=== PATIENT | male | born 1950 | race Caucasian/White ===

== ENCOUNTER 2021-02-27 11:01 | Inpatient (IN) | payer OTHER ==
[2021-02-27 14:50] LABS: #Eosinphils 0.1 10x3/uL (0.0-0.5); #Monocytes 0.8 10x3/uL (0.0-1.1); #Neutrophils 5.6 10x3/uL (1.5-8.4); %Basophils 0.4 % (0.0-2.0); %Lymphocytes 6.2 % (18.0-47.0); %Neutrophils 79.8 % (40.0-75.0); Hemoglobin 12.3 g/dL (13.5-17.5); Mean Corpuscular HGB CONC 32.6 g/dL (32.0-36.0); Mean Corpuscular Hemoglobin 30.4 pg (27.0-33.0); Mean Corpuscular Volume 93.3 fl (81.2-95.1); Mean Platelet Volume 10.6 fl (7.4-10.4); Platelet Count 127 10x3/uL (150-450); RBC Distribution Width 14.4 % (11.5-14.5); Red Blood Cell (RBC) Count 4.04 10x6/uL (4.32-5.72); White Blood Cell (WBC) Count 7.1 10x3/uL (3.5-10.5)
[2021-02-27] MEDS ORDERED: Cefepime 2 GM VIAL ONE (14:50)
[2021-02-27 14:54] LABS: ALT (SGPT) 19 U/L (8-55); AST (SGOT) 17 U/L (5-34); Albumin 3.9 g/dL (3.4-4.8); Alkaline Phosphatase 61 U/L (40-110); Anion Gap 15 mmol/L (10-20); BUN (Urea Nitrogen) 31 mg/dL (8.4-25.7); Bilirubin, Total 1.8 mg/dL (0.2-1.2); Calc. Creatinine Clearance 0 mL/min (70-130); Calcium 9.9 mg/dL (7.8-10.44); Carbon Dioxide 24 mmol/L (23-31); Chloride 103 mmol/L (98-107); Globulin 3.2 g/dL (2.4-3.5); Glucose 172 mg/dL (83-110); Potassium 4.9 mmol/L (3.5-5.1); Protein, Total 7.1 g/dL (5.8-8.1); Sodium 137 mmol/L (136-145)
[2021-02-27 14:59] LABS: PTT 54.5 sec (22.0-33.0); Prothrombin Time 72.1 sec (9.5-12.1)
[2021-02-27 15:02] LABS: INR-International Normal Ratio 7.1
[2021-02-27 15:52] LABS: SARS-CoV-2 NAA Rapid Test Not Detected (NotDetected)
[2021-02-27 17:25] LABS: Lactic Acid 3.3 mmol/L (0.5-2.2)
[2021-02-28] MEDS ORDERED: Phytonadione 10 MG/ML AMP PO SCH ×2 (04:30→11:00)
[2021-02-28] MEDS ORDERED: Furosemide 40 MG/4 ML VIAL SLOW IVP SCH (04:45)
[2021-02-28] MEDS ORDERED: Furosemide 40 MG/4 ML VIAL ONE (04:58)
[2021-02-28] MEDS ORDERED: Metoprolol Tartrate 50 MG TAB ONE (04:58)
[2021-02-28] MEDS ORDERED: Atorvastatin Calcium 40 MG TAB ONE (04:59)
[2021-02-28] MEDS: Lactated Ringer's 1,000 ML IV SCH ×3 (05:15→19:00)
[2021-02-28 05:25] LABS: Anion Gap 17 mmol/L (10-20); BUN (Urea Nitrogen) 25 mg/dL (8.4-25.7); Calc. Creatinine Clearance 0 mL/min (70-130); Calcium 9.7 mg/dL (7.8-10.44); Carbon Dioxide 17 mmol/L (23-31); Chloride 109 mmol/L (98-107); Glucose 166 mg/dL (83-110); Magnesium 1.9 mg/dL (1.6-2.6); Potassium 4.9 mmol/L (3.5-5.1); Sodium 138 mmol/L (136-145)
[2021-02-28 05:28] LABS: #Eosinphils 0.2 10x3/uL (0.0-0.5); #Monocytes 0.6 10x3/uL (0.0-1.1); #Neutrophils 4.9 10x3/uL (1.5-8.4); %Basophils 0.5 % (0.0-2.0); %Eosinophils 2.5 % (0.0-6.0); %Lymphocytes 8.5 % (18.0-47.0); %Monocytes 10.1 % (0.0-10.0); %Neutrophils 77.9 % (40.0-75.0); Hemoglobin 12.3 g/dL (13.5-17.5); Mean Corpuscular HGB CONC 32.1 g/dL (32.0-36.0); Mean Corpuscular Hemoglobin 30.5 pg (27.0-33.0); Mean Platelet Volume 10.6 fl (7.4-10.4); Platelet Count 135 10x3/uL (150-450); RBC Distribution Width 14.3 % (11.5-14.5); Red Blood Cell (RBC) Count 4.03 10x6/uL (4.32-5.72); White Blood Cell (WBC) Count 6.3 10x3/uL (3.5-10.5)
[2021-02-28 07:33] LABS: Prothrombin Time 67.1 sec (9.5-12.1)
[2021-02-28 07:35] LABS: INR-International Normal Ratio 6.6
[2021-02-28 07:36] LABS: PTT 53.2 sec (22.0-33.0)
[2021-02-28] MEDS: Mometasone/Formoterol 200/5 60 PUFF INH SCH ×2 (08:20→21:05)
[2021-02-28] MEDS: Cefepime 2 GM in Sodium Chloride 0.9% 100 ML IVPB SCH ×2 (09:16→20:55)
[2021-02-28] MEDS: metFORMIN 500 MG TAB PO SCH ×2 (09:17→16:51)
[2021-02-28] MEDS: Spironolactone 25 MG TAB PO SCH ×2 (09:17→16:51)
[2021-02-28] MEDS: Bumetanide 1 MG TAB PO SCH (09:17)
[2021-02-28] MEDS: Metoprolol Tartrate 50 MG TAB PO SCH ×2 (09:17→21:05)
[2021-02-28] MEDS: Amiodarone 200 MG TAB PO SCH (09:17)
[2021-02-28 09:31] VITALS: BMI 33.7
[2021-02-28] MEDS: Vancomycin 1.5 GRAM/300 ML BAG 1.5 GM in Premix Bag 1 BAG IVPB SCH ×2 (11:26→22:30)
[2021-02-28] MEDS ORDERED: Acetaminophen 325 MG TAB PO PRN (12:10)
[2021-02-28] MEDS: HYDROcodone/Acetaminophen 5/325 mg Tablet PO PRN ×2 (12:32→21:27)
[2021-02-28] MEDS: Atorvastatin Calcium 40 MG TAB PO SCH (21:05)
[2021-03-01 05:27] LABS: #Eosinphils 0.2 10x3/uL (0.0-0.5); #Monocytes 0.7 10x3/uL (0.0-1.1); #Neutrophils 4.3 10x3/uL (1.5-8.4); %Basophils 0.5 % (0.0-2.0); %Eosinophils 3.6 % (0.0-6.0); %Lymphocytes 11.7 % (18.0-47.0); %Monocytes 11.9 % (0.0-10.0); %Neutrophils 71.8 % (40.0-75.0); Hemoglobin 11.3 g/dL (13.5-17.5); Mean Corpuscular HGB CONC 32.3 g/dL (32.0-36.0); Mean Corpuscular Hemoglobin 30.4 pg (27.0-33.0); Mean Corpuscular Volume 94.1 fl (81.2-95.1); Mean Platelet Volume 10.4 fl (7.4-10.4); Platelet Count 131 10x3/uL (150-450); Red Blood Cell (RBC) Count 3.72 10x6/uL (4.32-5.72); White Blood Cell (WBC) Count 6.1 10x3/uL (3.5-10.5)
[2021-03-01 05:29] LABS: Anion Gap 13 mmol/L (10-20); BUN (Urea Nitrogen) 27 mg/dL (8.4-25.7); Calc. Creatinine Clearance 86 mL/min (70-130); Calcium 9.5 mg/dL (7.8-10.44); Carbon Dioxide 25 mmol/L (23-31); Chloride 106 mmol/L (98-107); Glucose 134 mg/dL (83-110); Potassium 4.9 mmol/L (3.5-5.1); Sodium 139 mmol/L (136-145)
[2021-03-01 05:34] LABS: INR-International Normal Ratio 2.6; Prothrombin Time 27.4 sec (9.5-12.1)
[2021-03-01] MEDS: Mometasone/Formoterol 200/5 60 PUFF INH SCH ×2 (08:20→20:10)
[2021-03-01 08:46] LABS: Vancomycin, Trough 27.4 ug/mL
[2021-03-01] MEDS: metFORMIN 500 MG TAB PO SCH ×2 (10:05→15:45)
[2021-03-01] MEDS: Saccharomyces boulardii 250 MG CAP PO SCH (10:05)
[2021-03-01] MEDS: HYDROcodone/Acetaminophen 5/325 mg Tablet PO PRN ×2 (10:05→20:24)
[2021-03-01] MEDS: Docusate 100 MG CAP PO PRN (10:05)
[2021-03-01] MEDS: Cefepime 2 GM in Sodium Chloride 0.9% 100 ML IVPB SCH ×2 (10:06→20:22)
[2021-03-01] MEDS: Amiodarone 200 MG TAB PO SCH (10:06)
[2021-03-01] MEDS: Spironolactone 25 MG TAB PO SCH ×2 (10:06→15:45)
[2021-03-01] MEDS: Metoprolol Tartrate 50 MG TAB PO SCH ×2 (10:06→20:23)
[2021-03-01] MEDS: Bumetanide 1 MG TAB PO SCH (10:08)
[2021-03-01] MEDS: Lactated Ringer's 1,000 ML IV SCH ×3 (10:57→20:21)
[2021-03-01] MEDS ORDERED: Warfarin Sodium 7.5 MG TAB PO SCH (17:00)
[2021-03-01] MEDS: Atorvastatin Calcium 40 MG TAB PO SCH (20:23)
[2021-03-01] MEDS: Vancomycin 1.5 GRAM/300 ML BAG 1.5 GM in Premix Bag 1 BAG IVPB SCH (22:13)
[2021-03-02 03:56] LABS: #Eosinphils 0.2 10x3/uL (0.0-0.5); #Monocytes 0.7 10x3/uL (0.0-1.1); %Basophils 0.8 % (0.0-2.0); %Eosinophils 2.8 % (0.0-6.0); %Lymphocytes 8.8 % (18.0-47.0); %Monocytes 13.1 % (0.0-10.0); %Neutrophils 74.3 % (40.0-75.0); Hemoglobin 11.2 g/dL (13.5-17.5); Mean Corpuscular HGB CONC 32.6 g/dL (32.0-36.0); Mean Corpuscular Hemoglobin 30.4 pg (27.0-33.0); Mean Corpuscular Volume 93.5 fl (81.2-95.1); Mean Platelet Volume 10.6 fl (7.4-10.4); Platelet Count 117 10x3/uL (150-450); RBC Distribution Width 13.9 % (11.5-14.5); Red Blood Cell (RBC) Count 3.68 10x6/uL (4.32-5.72); White Blood Cell (WBC) Count 5.3 10x3/uL (3.5-10.5)
[2021-03-02 04:00] LABS: Anion Gap 15 mmol/L (10-20); BUN (Urea Nitrogen) 28 mg/dL (8.4-25.7); Calc. Creatinine Clearance 88 mL/min (70-130); Calcium 9.4 mg/dL (7.8-10.44); Carbon Dioxide 21 mmol/L (23-31); Chloride 105 mmol/L (98-107); Glucose 156 mg/dL (83-110); Potassium 4.3 mmol/L (3.5-5.1); Sodium 137 mmol/L (136-145)
[2021-03-02 04:09] LABS: INR-International Normal Ratio 1.8
[2021-03-02] MEDS: Lactated Ringer's 1,000 ML IV SCH ×4 (06:29→21:13)
[2021-03-02] MEDS: Mometasone/Formoterol 200/5 60 PUFF INH SCH ×2 (08:59→20:08)
[2021-03-02] MEDS: Saccharomyces boulardii 250 MG CAP PO SCH (09:32)
[2021-03-02] MEDS: Spironolactone 25 MG TAB PO SCH ×2 (09:32→17:45)
[2021-03-02] MEDS: metFORMIN 500 MG TAB PO SCH ×2 (09:32→17:45)
[2021-03-02] MEDS: Metoprolol Tartrate 50 MG TAB PO SCH ×2 (09:32→20:40)
[2021-03-02] MEDS: Amiodarone 200 MG TAB PO SCH (09:32)
[2021-03-02] MEDS: Bumetanide 1 MG TAB PO SCH (09:38)
[2021-03-02] MEDS: HYDROcodone/Acetaminophen 5/325 mg Tablet PO PRN ×2 (10:00→20:40)
[2021-03-02] MEDS: Warfarin Sodium 5 MG TAB PO SCH (17:45)
[2021-03-02 20:11] LABS: Vancomycin, Trough 14.9 ug/mL
[2021-03-02] MEDS: Atorvastatin Calcium 40 MG TAB PO SCH (20:40)
[2021-03-02] MEDS: Vancomycin 1.5 GRAM/300 ML BAG 1.5 GM in Premix Bag 1 BAG IVPB SCH (20:41)
[2021-03-03] MEDS: Cefepime 2 GM in Sodium Chloride 0.9% 100 ML IVPB SCH (00:50)
[2021-03-03 05:39] LABS: #Eosinphils 0.2 10x3/uL (0.0-0.5); #Monocytes 0.7 10x3/uL (0.0-1.1); #Neutrophils 3.9 10x3/uL (1.5-8.4); %Basophils 0.4 % (0.0-2.0); %Eosinophils 3.4 % (0.0-6.0); %Lymphocytes 8.5 % (18.0-47.0); %Neutrophils 73.3 % (40.0-75.0); Hemoglobin 11.2 g/dL (13.5-17.5); Mean Corpuscular Hemoglobin 31.1 pg (27.0-33.0); Mean Corpuscular Volume 94.2 fl (81.2-95.1); Mean Platelet Volume 10.4 fl (7.4-10.4); Platelet Count 133 10x3/uL (150-450); White Blood Cell (WBC) Count 5.3 10x3/uL (3.5-10.5)
[2021-03-03 05:46] LABS: INR-International Normal Ratio 2.3; Prothrombin Time 24.6 sec (9.5-12.1)
[2021-03-03 05:48] LABS: Anion Gap 14 mmol/L (10-20); BUN (Urea Nitrogen) 23 mg/dL (8.4-25.7); Calc. Creatinine Clearance 100 mL/min (70-130); Calcium 9.3 mg/dL (7.8-10.44); Carbon Dioxide 21 mmol/L (23-31); Chloride 107 mmol/L (98-107); Glucose 148 mg/dL (83-110); Potassium 4.2 mmol/L (3.5-5.1); Sodium 138 mmol/L (136-145)
[2021-03-03] MEDS: Lactated Ringer's 1,000 ML IV SCH ×2 (05:54→08:51)
[2021-03-03] MEDS: Spironolactone 25 MG TAB PO SCH ×2 (08:52→16:42)
[2021-03-03] MEDS: Metoprolol Tartrate 50 MG TAB PO SCH ×2 (08:52→21:38)
[2021-03-03] MEDS: metFORMIN 500 MG TAB PO SCH ×2 (08:52→16:42)
[2021-03-03] MEDS: Saccharomyces boulardii 250 MG CAP PO SCH (08:52)
[2021-03-03] MEDS: Amiodarone 200 MG TAB PO SCH (08:52)
[2021-03-03] MEDS: HYDROcodone/Acetaminophen 5/325 mg Tablet PO PRN ×2 (08:52→13:16)
[2021-03-03] MEDS: Bumetanide 1 MG TAB PO SCH (08:52)
[2021-03-03] MEDS: Docusate 100 MG CAP PO PRN (08:52)
[2021-03-03] MEDS: Mometasone/Formoterol 200/5 60 PUFF INH SCH ×2 (10:43→19:24)
[2021-03-03] MEDS: Warfarin Sodium 5 MG TAB PO SCH (16:42)
[2021-03-03] MEDS ORDERED: Polyethylene Glycol 3350 17 GM Packet PO SCH ×2 (19:00→21:45)
[2021-03-03] MEDS: Atorvastatin Calcium 40 MG TAB PO SCH (21:37)
[2021-03-03] MEDS: Vancomycin 1.5 GRAM/300 ML BAG 1.5 GM in Premix Bag 1 BAG IVPB SCH (21:43)
[2021-03-04] MEDS ORDERED: Polyethylene Glycol 3350 17 GM Packet PO SCH (04:00)
[2021-03-04] MEDS: Lactated Ringer's 1,000 ML IV SCH ×3 (04:24→13:25)
[2021-03-04 05:28] LABS: Anion Gap 16 mmol/L (10-20); BUN (Urea Nitrogen) 23 mg/dL (8.4-25.7); Calc. Creatinine Clearance 104 mL/min (70-130); Calcium 9.6 mg/dL (7.8-10.44); Carbon Dioxide 21 mmol/L (23-31); Chloride 107 mmol/L (98-107); Glucose 137 mg/dL (83-110); Potassium 4.5 mmol/L (3.5-5.1); Sodium 139 mmol/L (136-145)
[2021-03-04 06:19] LABS: INR-International Normal Ratio 2.7; Prothrombin Time 28.3 sec (9.5-12.1)
[2021-03-04] MEDS: Mometasone/Formoterol 200/5 60 PUFF INH SCH ×2 (08:00→18:50)
[2021-03-04 08:52] LABS: #Eosinphils 0.2 10x3/uL (0.0-0.5); #Monocytes 0.7 10x3/uL (0.0-1.1); #Neutrophils 4.4 10x3/uL (1.5-8.4); %Basophils 0.5 % (0.0-2.0); %Eosinophils 2.6 % (0.0-6.0); %Lymphocytes 9.4 % (18.0-47.0); %Monocytes 12.6 % (0.0-10.0); %Neutrophils 74.6 % (40.0-75.0); Hemoglobin 11.5 g/dL (13.5-17.5); Mean Corpuscular HGB CONC 33.1 g/dL (32.0-36.0); Mean Corpuscular Hemoglobin 30.7 pg (27.0-33.0); Mean Corpuscular Volume 92.8 fl (81.2-95.1); Mean Platelet Volume 10.3 fl (7.4-10.4); Platelet Count 148 10x3/uL (150-450); RBC Distribution Width 14.2 % (11.5-14.5); Red Blood Cell (RBC) Count 3.74 10x6/uL (4.32-5.72); White Blood Cell (WBC) Count 5.9 10x3/uL (3.5-10.5)
[2021-03-04] MEDS: metFORMIN 500 MG TAB PO SCH ×2 (08:55→16:09)
[2021-03-04] MEDS: Spironolactone 25 MG TAB PO SCH ×2 (08:55→16:10)
[2021-03-04] MEDS: Amiodarone 200 MG TAB PO SCH (08:55)
[2021-03-04] MEDS: Metoprolol Tartrate 50 MG TAB PO SCH ×2 (08:55→22:24)
[2021-03-04] MEDS: Bumetanide 1 MG TAB PO SCH (08:55)
[2021-03-04] MEDS: Saccharomyces boulardii 250 MG CAP PO SCH (08:55)
[2021-03-04] MEDS: Warfarin Sodium 5 MG TAB PO SCH (16:10)
[2021-03-04 20:51] LABS: Vancomycin, Trough 14.5 ug/mL
[2021-03-04] MEDS: Atorvastatin Calcium 40 MG TAB PO SCH (22:24)
[2021-03-04] MEDS: Vancomycin 1.5 GRAM/300 ML BAG 1.5 GM in Premix Bag 1 BAG IVPB SCH (22:24)
[2021-03-05] MEDS: Lactated Ringer's 1,000 ML IV SCH ×3 (03:03→09:22)
[2021-03-05 06:19] LABS: Anion Gap 16 mmol/L (10-20); BUN (Urea Nitrogen) 22 mg/dL (8.4-25.7); Calc. Creatinine Clearance 95 mL/min (70-130); Calcium 9.9 mg/dL (7.8-10.44); Carbon Dioxide 21 mmol/L (23-31); Chloride 106 mmol/L (98-107); Glucose 155 mg/dL (83-110); Potassium 4.1 mmol/L (3.5-5.1); Sodium 139 mmol/L (136-145)
[2021-03-05 06:57] LABS: #Eosinphils 0.2 10x3/uL (0.0-0.5); #Monocytes 0.7 10x3/uL (0.0-1.1); #Neutrophils 4.2 10x3/uL (1.5-8.4); %Basophils 0.5 % (0.0-2.0); %Eosinophils 2.7 % (0.0-6.0); %Lymphocytes 6.4 % (18.0-47.0); Hemoglobin 11.3 g/dL (13.5-17.5); Mean Corpuscular HGB CONC 32.9 g/dL (32.0-36.0); Mean Corpuscular Hemoglobin 30.4 pg (27.0-33.0); Mean Corpuscular Volume 92.2 fl (81.2-95.1); Platelet Count 168 10x3/uL (150-450); RBC Distribution Width 14.1 % (11.5-14.5); Red Blood Cell (RBC) Count 3.72 10x6/uL (4.32-5.72); White Blood Cell (WBC) Count 5.5 10x3/uL (3.5-10.5)
[2021-03-05] MEDS: Mometasone/Formoterol 200/5 60 PUFF INH SCH ×2 (07:17→19:18)
[2021-03-05] MEDS: metFORMIN 500 MG TAB PO SCH ×2 (08:02→17:36)
[2021-03-05] MEDS: Spironolactone 25 MG TAB PO SCH ×2 (08:02→17:36)
[2021-03-05] MEDS: Bumetanide 1 MG TAB PO SCH (08:03)
[2021-03-05] MEDS: Metoprolol Tartrate 50 MG TAB PO SCH ×2 (08:03→20:40)
[2021-03-05] MEDS: Saccharomyces boulardii 250 MG CAP PO SCH (08:03)
[2021-03-05] MEDS: Amiodarone 200 MG TAB PO SCH (08:03)
[2021-03-05 08:15] LABS: INR-International Normal Ratio 3.4; Prothrombin Time 36.6 sec (9.5-12.1)
[2021-03-05] MEDS ORDERED: Lactated Ringer's 1,000 ML IV SCH (11:28)
[2021-03-05] MEDS: HYDROcodone/Acetaminophen 5/325 mg Tablet PO PRN (11:46)
[2021-03-05] MEDS ORDERED: Bumetanide 1 MG/4 ML VIAL IVP SCH (16:00)
[2021-03-05] MEDS ORDERED: Warfarin Sodium 2 MG TAB PO SCH (17:00)
[2021-03-05] MEDS ORDERED: Warfarin Sodium 5 MG TAB PO SCH (17:00)
[2021-03-05] MEDS: Vancomycin 1.5 GRAM/300 ML BAG 1.5 GM in Premix Bag 1 BAG IVPB SCH (20:39)
[2021-03-05] MEDS: Atorvastatin Calcium 40 MG TAB PO SCH (20:40)
[2021-03-06 05:45] LABS: Anion Gap 14 mmol/L (10-20); BUN (Urea Nitrogen) 22 mg/dL (8.4-25.7); Calc. Creatinine Clearance 94 mL/min (70-130); Calcium 9.9 mg/dL (7.8-10.44); Carbon Dioxide 22 mmol/L (23-31); Chloride 107 mmol/L (98-107); Glucose 159 mg/dL (83-110); Potassium 4.3 mmol/L (3.5-5.1); Sodium 139 mmol/L (136-145)
[2021-03-06 05:49] LABS: #Eosinphils 0.2 10x3/uL (0.0-0.5); #Monocytes 0.6 10x3/uL (0.0-1.1); #Neutrophils 4.2 10x3/uL (1.5-8.4); %Basophils 0.6 % (0.0-2.0); %Eosinophils 2.8 % (0.0-6.0); %Lymphocytes 7.5 % (18.0-47.0); %Neutrophils 77.7 % (40.0-75.0); Hemoglobin 11.3 g/dL (13.5-17.5); Mean Corpuscular Hemoglobin 30.6 pg (27.0-33.0); Mean Corpuscular Volume 92.7 fl (81.2-95.1); Mean Platelet Volume 9.8 fl (7.4-10.4); Platelet Count 183 10x3/uL (150-450); RBC Distribution Width 14.6 % (11.5-14.5); Red Blood Cell (RBC) Count 3.69 10x6/uL (4.32-5.72); White Blood Cell (WBC) Count 5.5 10x3/uL (3.5-10.5)
[2021-03-06 05:53] LABS: Prothrombin Time 48.1 sec (9.5-12.1)
[2021-03-06 05:57] LABS: INR-International Normal Ratio 4.4
[2021-03-06] MEDS: Mometasone/Formoterol 200/5 60 PUFF INH SCH ×2 (06:58→19:00)
[2021-03-06] MEDS: Spironolactone 25 MG TAB PO SCH ×2 (09:09→16:17)
[2021-03-06] MEDS: metFORMIN 500 MG TAB PO SCH ×2 (09:09→16:17)
[2021-03-06] MEDS: Amiodarone 200 MG TAB PO SCH (09:09)
[2021-03-06] MEDS: Bumetanide 1 MG/4 ML VIAL IVP SCH (09:09)
[2021-03-06] MEDS: Saccharomyces boulardii 250 MG CAP PO SCH (09:10)
[2021-03-06] MEDS: Metoprolol Tartrate 50 MG TAB PO SCH ×2 (09:10→20:05)
[2021-03-06] MEDS: HYDROcodone/Acetaminophen 5/325 mg Tablet PO PRN (13:20)
[2021-03-06] MEDS ORDERED: Bumetanide 1 MG/4 ML VIAL IVP SCH (17:00)
[2021-03-06] MEDS: Atorvastatin Calcium 40 MG TAB PO SCH (20:06)
[2021-03-06] MEDS: Vancomycin 1.5 GRAM/300 ML BAG 1.5 GM in Premix Bag 1 BAG IVPB SCH (20:11)
[2021-03-07 05:42] LABS: Anion Gap 17 mmol/L (10-20); Calc. Creatinine Clearance 83 mL/min (70-130); Calcium 9.7 mg/dL (7.8-10.44); Carbon Dioxide 22 mmol/L (23-31); Chloride 107 mmol/L (98-107); Glucose 179 mg/dL (83-110); Potassium 4.6 mmol/L (3.5-5.1); Sodium 141 mmol/L (136-145)
[2021-03-07 06:20] LABS: BUN (Urea Nitrogen) 24 mg/dL (8.4-25.7)
[2021-03-07 06:36] LABS: #Eosinphils 0.1 10x3/uL (0.0-0.5); #Monocytes 0.6 10x3/uL (0.0-1.1); #Neutrophils 3.9 10x3/uL (1.5-8.4); %Basophils 0.4 % (0.0-2.0); %Eosinophils 1.7 % (0.0-6.0); %Lymphocytes 5.6 % (18.0-47.0); %Monocytes 12.1 % (0.0-10.0); Hemoglobin 11.3 g/dL (13.5-17.5); Mean Corpuscular HGB CONC 33.8 g/dL (32.0-36.0); Mean Corpuscular Hemoglobin 30.9 pg (27.0-33.0); Mean Corpuscular Volume 91.3 fl (81.2-95.1); Mean Platelet Volume 9.8 fl (7.4-10.4); Platelet Count 147 10x3/uL (150-450); RBC Distribution Width 14.6 % (11.5-14.5); Red Blood Cell (RBC) Count 3.66 10x6/uL (4.32-5.72); White Blood Cell (WBC) Count 4.8 10x3/uL (3.5-10.5)
[2021-03-07 06:50] LABS: INR-International Normal Ratio 3.8; Prothrombin Time 41.5 sec (9.5-12.1)
[2021-03-07] MEDS: Mometasone/Formoterol 200/5 60 PUFF INH SCH ×2 (08:02→19:15)
[2021-03-07] MEDS: Amiodarone 200 MG TAB PO SCH (09:23)
[2021-03-07] MEDS: Metoprolol Tartrate 50 MG TAB PO SCH ×2 (09:23→21:51)
[2021-03-07] MEDS: Saccharomyces boulardii 250 MG CAP PO SCH (09:23)
[2021-03-07] MEDS: Spironolactone 25 MG TAB PO SCH ×2 (09:23→17:50)
[2021-03-07] MEDS: Bumetanide 1 MG/4 ML VIAL IVP SCH ×2 (09:23→22:33)
[2021-03-07] MEDS: metFORMIN 500 MG TAB PO SCH ×2 (09:23→17:50)
[2021-03-07] MEDS: HYDROcodone/Acetaminophen 5/325 mg Tablet PO PRN (15:41)
[2021-03-07 20:37] LABS: Vancomycin, Trough 14.3 ug/mL
[2021-03-07] MEDS: Vancomycin 1.5 GRAM/300 ML BAG 1.5 GM in Premix Bag 1 BAG IVPB SCH (21:51)
[2021-03-07] MEDS: Atorvastatin Calcium 40 MG TAB PO SCH (21:51)
[2021-03-08 06:03] LABS: Anion Gap 16 mmol/L (10-20); BUN (Urea Nitrogen) 26 mg/dL (8.4-25.7); Calc. Creatinine Clearance 84 mL/min (70-130); Carbon Dioxide 21 mmol/L (23-31); Chloride 105 mmol/L (98-107); Potassium 4.1 mmol/L (3.5-5.1); Sodium 138 mmol/L (136-145)
[2021-03-08 06:04] LABS: Calcium 9.7 mg/dL (7.8-10.44); Glucose 192 mg/dL (83-110)
[2021-03-08 06:57] LABS: INR-International Normal Ratio 3.7
[2021-03-08] MEDS: Saccharomyces boulardii 250 MG CAP PO SCH (08:46)
[2021-03-08] MEDS: Bumetanide 1 MG/4 ML VIAL IVP SCH (08:46)
[2021-03-08] MEDS: Spironolactone 25 MG TAB PO SCH (08:46)
[2021-03-08] MEDS: Metoprolol Tartrate 50 MG TAB PO SCH (08:46)
[2021-03-08] MEDS: Amiodarone 200 MG TAB PO SCH (08:46)
[2021-03-08] MEDS: metFORMIN 500 MG TAB PO SCH (08:46)
[2021-03-08] MEDS: Mometasone/Formoterol 200/5 60 PUFF INH SCH (09:01)
[2021-03-08 10:12] VITALS: TEMP 98.8
[2021-03-08] MEDS: HYDROcodone/Acetaminophen 5/325 mg Tablet PO PRN (11:23)
[2021-03-08] MEDS ORDERED: Metoclopramide HCl 10 MG/2 ML VIAL IVP PRN (12:36)
[2021-03-08] MEDS ORDERED: Sodium Chloride 0.65% Nasal 44 ML BOT EA NARE PRN (12:36)
[2021-03-08] MEDS ORDERED: Loratadine 10 MG TAB PO PRN (12:36)
[2021-03-08] MEDS ORDERED: Loperamide HCl 2 MG CAP PO PRN (12:36)
[2021-03-08] MEDS ORDERED: GUAIFENESIN SF SOLN 200 MG/10 ML UDCUP PO PRN (12:36)
[2021-03-08] MEDS ORDERED: Senokot S 8.6-50 MG TAB PO PRN (12:36)
[2021-03-08] MEDS ORDERED: Artificial Tear Sol 15 ML BOT EA EYE PRN (12:36)
[2021-03-08] MEDS ORDERED: Bisacodyl 5 MG TAB PO PRN (12:36)
[2021-03-08] MEDS ORDERED: Zolpidem Tartrate 5 MG TAB PO PRN (12:36)
[2021-03-08] MEDS ORDERED: Cepastat Lozenges 1 LOZ PO PRN (12:36)
[2021-03-08] MEDS ORDERED: Calcium Carbonate 500 MG ChewTAB PO PRN (12:36)
[2021-03-08] MEDS ORDERED: hydrALAZINE 20 MG/ML VIAL SLOW IVP PRN (12:36)
[2021-03-08] MEDS ORDERED: Benzonatate 100 MG CAP PO PRN (12:36)
[2021-03-08] MEDS ORDERED: Hydrocerin (Eucerin) Cream 120 gm Jar TOP PRN (12:36)
[2021-03-08 14:36] VITALS: BP 134/72
== END 2021-03-08 16:40 | disposition home or self-care (01) | DRG 603 ==
LOC: CSHERS 11:01 → CSHERHOLD 18:37 → UNDOADMIN 02-28 04:00 → CSHERHOLD 02-28 04:00 → CSHTELE 02-28 07:36 → CSHERHOLD 02-28 07:36
PROVIDERS: ADMIT Family Medicine; ATTEND Internal Medicine
DX: L03.116 Cellulitis of left lower limb (principal); I48.19 Other persistent atrial fibrillation; J44.9 Chronic obstructive pulmonary disease, unspecified; E78.5 Hyperlipidemia, unspecified; Z79.01 Long term (current) use of anticoagulants; E11.9 Type 2 diabetes mellitus without complications; Z79.4 Long term (current) use of insulin; Z86.73 Personal history of transient ischemic attack (TIA), and cerebral infarction without residual deficits; N18.9 Chronic kidney disease, unspecified; Z20.822 Contact with and (suspected) exposure to COVID-19; S81.002A Unspecified open wound, left knee, initial encounter; W19.XXXA Unspecified fall, initial encounter
CPT/HCPCS: 36415; 36416; 71045; 80048; 80053; 80202; 83605; 83735; 85025; 85610; 85730; 86140; 86850; 86900; 86901; 87040; 87070; 87077; 87186; 87205; 93005; 94640; 94664; 94760; 96365; 96366; 96367; J0692; J1940; J3370; J3430; J3490; J7120; J7620; U0002

== ENCOUNTER 2021-08-18 14:02 | Emergency (ER) | payer OTHER ==
[2021-08-18] MEDS ORDERED: Bacitracin 1 PK ONE (16:36)
== END 2021-08-18 16:35 | disposition home or self-care (01) ==
LOC: CSHERS 14:02
DX: S63.501A Unspecified sprain of right wrist, initial encounter (principal); S00.83XA Contusion of other part of head, initial encounter; S20.211A Contusion of right front wall of thorax, initial encounter; I11.0 Hypertensive heart disease with heart failure; I50.9 Heart failure, unspecified; E78.5 Hyperlipidemia, unspecified; J44.9 Chronic obstructive pulmonary disease, unspecified; Z86.73 Personal history of transient ischemic attack (TIA), and cerebral infarction without residual deficits; E11.9 Type 2 diabetes mellitus without complications; I48.91 Unspecified atrial fibrillation; W01.0XXA Fall on same level from slipping, tripping and stumbling without subsequent striking against object, initial encounter
CPT/HCPCS: 70450; 71045; 72125

== ENCOUNTER 2023-11-22 08:36 | Outpatient (CLI) | payer OTHER | END 2023-11-22 08:37 | disposition home or self-care (01) | LOC: CSHCT 08:36 | PROVIDERS: ATTEND Internal Medicine Gastroenterology | DX: K74.60 Unspecified cirrhosis of liver (principal); K86.2 Cyst of pancreas; N28.1 Cyst of kidney, acquired; Q44.79 Other congenital malformations of liver | CPT/HCPCS: 74160; 82565 ==